=== PATIENT | male | born 1990 | race Hispanic/Latino ===

== ENCOUNTER 2022-05-30 18:15 | Inpatient (IN) | payer BC, OTHER ==
[~2022-05-30] VITALS: Ht 177.8 cm; Wt 88.0 kg
[~2022-05-30 18:15] MED LIST: KEFLEX500 MG PO
[2022-05-30] MEDS ORDERED: ONDANSETRON HCL INJ 2MG/ML 2ML 2 MG/ML VIAL IV STA (18:39)
[2022-05-30] MEDS ORDERED: SODIUM CHLORIDE 0.9% 1000ML 1,000 ML IV STA (18:39)
[2022-05-30] MEDS ORDERED: Morphine 4mg INJECTION 4 MG/ML INJ IV STA (18:39)
[2022-05-30 18:49] LABS: BASOPHILS # (AUTO) 0.1 (0.0-0.1); BASOPHILS % 0.5 % (0.0-1.0); EOSINOPHILS # (AUTO) 0.1 (0.0-0.4); EOSINOPHILS % 0.8 % (0.0-6.0); HEMATOCRIT 41.1 % (38.2-49.6); HEMOGLOBIN 13.1 g/dL (14.0-18.0); LYMPHOCYTES # (AUTO) 1.6 (1.0-3.2); MEAN CORPUSCULAR HEMOGLOBIN 27.8 pg (28-32); MEAN CORPUSCULAR HGB CONC 31.9 g/dL (31-35); MEAN CORPUSCULAR VOLUME 87.3 fL (81-99); MONOCYTES # (AUTO) 0.6 (0.2-0.8); MONOCYTES % 4.2 % (4.4-11.3); NEUTROPHILS % 83.2 % (38.7-80.0); PLATELET COUNT 365 x10e3/uL (140-360); RED BLOOD COUNT 4.71 x10e6/uL (4.3-5.7); RED CELL DISTRIBUTION WIDTH 12.9 % (11.7-14.4)
[2022-05-30 19:04] LABS: ALBUMIN 4.2 g/dL (3.5-5.0); ALBUMIN/GLOBULIN RATIO 1.2 (0.8-2.0); ANION GAP 17.4 mmol/L (8-16); CALCIUM 9.2 mg/dL (8.4-10.2); CREATININE, SERUM 0.75 mg/dL (0.72-1.25); POTASSIUM 3.4 mmol/L (3.5-5.1)
[2022-05-30 19:10] LABS: CREATINE KINASE MB 0.4 ng/mL (0-5.0)
[2022-05-30 19:16] LABS: CLARITY,URINE CLOUDY (CLEAR); COLOR,URINE ORANGE (YELLOW); KETONES,URINE >=160 (NEGATIVE); LEUKOCYTE ESTERASE ,URINE SMALL (NEGATIVE); NITRITE,URINE NEGATIVE (NEGATIVE); PROTEIN,URINE DIPSTICK 2+ (NEGATIVE); URINE UROBILINOGEN >=8 mg/dL (0.2 - 1)
[2022-05-30 19:26] LABS: BACTERIA,URINE MANY /HPF; RBC,URINE 0-5 /HPF (0-5)
[2022-05-30] MEDS: DONNATAL/LIDOCAINE/MAALOX 30 ML SUSP PO SCH (19:44)
[2022-05-30] MEDS ORDERED: ONDANSETRON HCL INJ 2MG/ML 2ML 2 MG/ML VIAL IV PRN (21:15)
[2022-05-30] MEDS ORDERED: SODIUM CHLORIDE 0.9% 1000ML 1,000 ML IV SCH ×2 (21:15→23:45)
[2022-05-30 22:29] VITALS: BP 98/65
[2022-05-30 23:18] VITALS: BP 98/65
[2022-05-31] VITALS (8 sets, daily range): BP systolic 92–112; BP diastolic 58–72
[2022-05-31] MEDS: LACTATED RINGER'S 1,000 ML INJ SCH ×5 (03:59→23:46)
[2022-05-31 05:58] LABS: BASOPHILS # (AUTO) 0.1 (0.0-0.1); BASOPHILS % 0.7 % (0.0-1.0); EOSINOPHILS # (AUTO) 0.2 (0.0-0.4); EOSINOPHILS % 2.2 % (0.0-6.0); HEMATOCRIT 34.5 % (38.2-49.6); HEMOGLOBIN 10.7 g/dL (14.0-18.0); LYMPHOCYTES # (AUTO) 1.9 (1.0-3.2); LYMPHOCYTES % 24.6 % (18.0-39.1); MEAN CORPUSCULAR HEMOGLOBIN 27.7 pg (28-32); MEAN CORPUSCULAR VOLUME 89.4 fL (81-99); MONOCYTES # (AUTO) 0.6 (0.2-0.8); MONOCYTES % 7.2 % (4.4-11.3); NEUTROPHILS # (AUTO) 4.9 (2.1-6.9); NEUTROPHILS % 64.9 % (38.7-80.0); PLATELET COUNT 244 x10e3/uL (140-360); RED BLOOD COUNT 3.86 x10e6/uL (4.3-5.7); RED CELL DISTRIBUTION WIDTH 13.3 % (11.7-14.4)
[2022-05-31 06:28] LABS: ALBUMIN 3.3 g/dL (3.5-5.0); ALBUMIN/GLOBULIN RATIO 1.2 (0.8-2.0); ANION GAP 11.8 mmol/L (8-16); CALCIUM 8.4 mg/dL (8.4-10.2); CREATININE, SERUM 0.75 mg/dL (0.72-1.25); POTASSIUM 3.8 mmol/L (3.5-5.1)
[2022-05-31] MEDS: DONNATAL/LIDOCAINE/MAALOX 30 ML SUSP PO SCH ×3 (09:00→21:28)
[2022-05-31] MEDS ORDERED: PIPERACILLIN/TAZOBACTAM SOD 2.25 GM VIAL ONE (16:00)
[2022-05-31] MEDS ORDERED: LIDOCAINE VISC 2% SOLN 15 ML UDC ONE (21:24)
[2022-05-31] MEDS ORDERED: BELLADONNA ALK/PHENOBARBITAL 5 ML UDC ONE (21:24)
[2022-05-31] MEDS ORDERED: MAGNESIUM/ALUMINUM/SIMETHICONE 30 ML UDC ONE (21:25)
[2022-06-01] VITALS (8 sets, daily range): BP systolic 93–137; BP diastolic 59–80
[2022-06-01 01:45] LABS: % IRON SATURATION 16 % (15-50); IRON 33 ug/dL (65-175); TOTAL IRON BINDING CAPACITY 202 ug/dL (261-478); TRANSFERRIN 144 mg/dL (174-364)
[2022-06-01] MEDS: LACTATED RINGER'S 1,000 ML INJ SCH ×4 (03:15→13:48)
[2022-06-01 06:34] LABS: ALBUMIN 3.2 g/dL (3.5-5.0); ALBUMIN/GLOBULIN RATIO 1.1 (0.8-2.0); ANION GAP 11.7 mmol/L (8-16); CALCIUM 8.5 mg/dL (8.4-10.2); CREATININE, SERUM 0.79 mg/dL (0.72-1.25); POTASSIUM 3.7 mmol/L (3.5-5.1)
[2022-06-01] MEDS: DONNATAL/LIDOCAINE/MAALOX 30 ML SUSP PO SCH ×3 (09:00→21:53)
[2022-06-01] MEDS ORDERED: BUPIVACAINE 0.5%/EPI 30 ML SDV INJ ONE (14:09)
[2022-06-02] VITALS (7 sets, daily range): BP systolic 105–124; BP diastolic 62–69
[2022-06-02] MEDS: LACTATED RINGER'S 1,000 ML INJ SCH ×4 (03:17→23:31)
[2022-06-02 06:38] LABS: BASOPHILS # (AUTO) 0.1 (0.0-0.1); BASOPHILS % 1.2 % (0.0-1.0); EOSINOPHILS # (AUTO) 0.5 (0.0-0.4); EOSINOPHILS % 5.9 % (0.0-6.0); HEMATOCRIT 34.2 % (38.2-49.6); HEMOGLOBIN 11.2 g/dL (14.0-18.0); LYMPHOCYTES # (AUTO) 3.2 (1.0-3.2); LYMPHOCYTES % 40.8 % (18.0-39.1); MEAN CORPUSCULAR HEMOGLOBIN 27.7 pg (28-32); MEAN CORPUSCULAR HGB CONC 32.7 g/dL (31-35); MEAN CORPUSCULAR VOLUME 84.4 fL (81-99); MONOCYTES # (AUTO) 0.5 (0.2-0.8); MONOCYTES % 6.9 % (4.4-11.3); NEUTROPHILS # (AUTO) 3.5 (2.1-6.9); NEUTROPHILS % 44.4 % (38.7-80.0); PLATELET COUNT 258 x10e3/uL (140-360); RED BLOOD COUNT 4.05 x10e6/uL (4.3-5.7); RED CELL DISTRIBUTION WIDTH 13.3 % (11.7-14.4)
[2022-06-02 07:24] LABS: ALANINE AMINOTRANSFERASE 100 IU/L (0-55); ALBUMIN 3.3 g/dL (3.5-5.0); ALBUMIN/GLOBULIN RATIO 1.1 (0.8-2.0); ALKALINE PHOSPHATASE 81 IU/L (40-150); ANION GAP 15.5 mmol/L (8-16); BLOOD UREA NITROGEN < 5 mg/dL (7-26); CALCIUM 8.5 mg/dL (8.4-10.2); CARBON DIOXIDE 27 mmol/L (22-29); CHLORIDE 100 mmol/L (98-107); CREATININE, SERUM 0.83 mg/dL (0.72-1.25); GLUCOSE 85 mg/dL (74-118); LIPASE 107 U/L (8-78); POTASSIUM 3.5 mmol/L (3.5-5.1); SODIUM 139 mmol/L (136-145)
[2022-06-02 07:28] LABS: BUN/CREATININE RATIO 6 (6-25)
[2022-06-02] MEDS: FOLIC ACID 1 MG TAB PO SCH (08:38)
[2022-06-02] MEDS: DONNATAL/LIDOCAINE/MAALOX 30 ML SUSP PO SCH ×3 (08:38→20:11)
[2022-06-02] MEDS: IRON SUCROSE 100 MG in SODIUM CHLORIDE 0.9% 100 ML IV SCH (11:00)
[2022-06-02] MEDS ORDERED: ONDANSETRON HCL INJ 2MG/ML 2ML 2 MG/ML VIAL ONE ×2 (12:16→17:25)
[2022-06-02] MEDS ORDERED: ROCURONIUM BROMIDE 10 MG/ML 5ML VIAL IV ONE (12:16)
[2022-06-02] MEDS ORDERED: KETOROLAC TROMETHAMINE 30 MG/ML VIAL ONE (12:16)
[2022-06-02] MEDS ORDERED: PROPOFOL IV EMULSION 10 MG/ML 20 ML VIAL ONE (12:16)
[2022-06-02] MEDS ORDERED: GLYCOPYRROLATE INJ 0.2 MG/ML VIAL ONE (12:16)
[2022-06-02] MEDS ORDERED: LIDOCAINE HCL 2% LOCAL INJ 5 ML SDV VIAL INJ ONE (12:16)
[2022-06-02] MEDS ORDERED: SEVOFLURANE INHAL SOLN 250 ML PEN BTL ONE (12:16)
[2022-06-02] MEDS ORDERED: NEOSTIGMINE 1 MG/ML 10ML VIAL ONE (12:16)
[2022-06-02] MEDS ORDERED: POVIDONE IODINE 0.05% 0.05 % ML PO ONE (12:16)
[2022-06-02] MEDS ORDERED: FENTANYL CITRATE/PF 100MCG/2 ML INJ ONE (12:43)
[2022-06-02] MEDS ORDERED: MIDAZOLAM HCL 2 MG/2 ML VIAL ONE (12:43)
[2022-06-02] MEDS ORDERED: BUPIVACAINE 0.25% 30ML SDV ONE (14:51)
[2022-06-03] VITALS (8 sets, daily range): BP systolic 100–117; BP diastolic 62–69
[2022-06-03] MEDS: Morphine 4mg INJECTION 4 MG/ML INJ IV PRN ×2 (01:36→01:37)
[2022-06-03] MEDS: LACTATED RINGER'S 1,000 ML INJ SCH ×2 (06:03→15:10)
[2022-06-03] MEDS: DONNATAL/LIDOCAINE/MAALOX 30 ML SUSP PO SCH ×3 (09:00→21:11)
[2022-06-03] MEDS: IRON SUCROSE 100 MG in SODIUM CHLORIDE 0.9% 100 ML IV SCH (09:00)
[2022-06-03] MEDS: FOLIC ACID 1 MG TAB PO SCH (09:06)
[2022-06-03] MEDS ORDERED: ACETAMINOPHEN/CODEINE 300MG - 30MG TAB PO PRN (11:00)
[2022-06-04 00:04] VITALS: BP 117/68
[2022-06-04 04:08] VITALS: BP 105/66
[2022-06-04] MEDS: LACTATED RINGER'S 1,000 ML INJ SCH (04:30)
[2022-06-04 05:36] LABS: BASOPHILS # (AUTO) 0.1 (0.0-0.1); BASOPHILS % 1.2 % (0.0-1.0); EOSINOPHILS # (AUTO) 0.5 (0.0-0.4); EOSINOPHILS % 5.8 % (0.0-6.0); HEMATOCRIT 39.2 % (38.2-49.6); HEMOGLOBIN 12.2 g/dL (14.0-18.0); LYMPHOCYTES # (AUTO) 3.5 (1.0-3.2); LYMPHOCYTES % 42.7 % (18.0-39.1); MEAN CORPUSCULAR HEMOGLOBIN 27.9 pg (28-32); MEAN CORPUSCULAR HGB CONC 31.1 g/dL (31-35); MEAN CORPUSCULAR VOLUME 89.5 fL (81-99); MONOCYTES # (AUTO) 0.6 (0.2-0.8); MONOCYTES % 7.5 % (4.4-11.3); NEUTROPHILS # (AUTO) 3.5 (2.1-6.9); NEUTROPHILS % 42.2 % (38.7-80.0); PLATELET COUNT 277 x10e3/uL (140-360); RED BLOOD COUNT 4.38 x10e6/uL (4.3-5.7); RED CELL DISTRIBUTION WIDTH 12.9 % (11.7-14.4)
[2022-06-04 06:03] LABS: ALANINE AMINOTRANSFERASE 72 IU/L (0-55); ALBUMIN 3.5 g/dL (3.5-5.0); ALBUMIN/GLOBULIN RATIO 1.1 (0.8-2.0); ALKALINE PHOSPHATASE 67 IU/L (40-150); ANION GAP 12.8 mmol/L (8-16); BLOOD UREA NITROGEN < 5 mg/dL (7-26); CALCIUM 8.6 mg/dL (8.4-10.2); CARBON DIOXIDE 29 mmol/L (22-29); CHLORIDE 100 mmol/L (98-107); GLUCOSE 98 mg/dL (74-118); LIPASE 50 U/L (8-78); POTASSIUM 3.8 mmol/L (3.5-5.1); SODIUM 138 mmol/L (136-145)
[2022-06-04 06:04] LABS: BUN/CREATININE RATIO 6 (6-25)
[2022-06-04 08:33] VITALS: BP 104/63
[2022-06-04 08:37] VITALS: BP 104/63
[2022-06-04] MEDS: FOLIC ACID 1 MG TAB PO SCH (08:39)
[2022-06-04] MEDS: DONNATAL/LIDOCAINE/MAALOX 30 ML SUSP PO SCH (09:00)
[2022-06-04] MEDS: IRON SUCROSE 100 MG in SODIUM CHLORIDE 0.9% 100 ML IV SCH (09:00)
== END 2022-06-04 10:57 | disposition home or self-care (01) | DRG 418 ==
LOC: ER 18:35 → ERHOLD 21:14 → MED/SURG3 21:52
PROVIDERS: ADMIT Internal Medicine; ATTEND Internal Medicine
PROC: 0FT44ZZ Resection of Gallbladder, Percutaneous Endoscopic Approach (ICD-10-PCS; principal; 2022-06-02 15:33)
DX: K85.10 Biliary acute pancreatitis without necrosis or infection (principal); K80.10 Calculus of gallbladder with chronic cholecystitis without obstruction; D64.9 Anemia, unspecified; Z20.822 Contact with and (suspected) exposure to COVID-19
CPT/HCPCS: 0223U; 36415; 71046; 74181; 76705; 80053; 81001; 82150; 82550; 82553; 82607; 82746; 83540; 83690; 84466; 84484; 85025; 85045; 88304; 93005; 94799; 99284; J0690; J1756; J1885; J2001; J2250; J2270; J2405; J2543; J2710; J3010; J7030; J7050; J7121